=== PATIENT | female | born 1945 | race African-American/Black ===

== ENCOUNTER 2016-07-26 12:58 | Emergency (ER) | payer OTHER ==
--- NOTE | ~2016-07-26 | CR72 ---
[facility] A Service of [facility] & [facility] RADIOLOGY TEXT RESULTS PATIENT: GABBIE KAUFFMAN LOCATION: [facility] : 45 UNIT #: [id number] AGE: [address]: Lynda Cruz MD SEX: F ORDER DR: [id number] [facility] [address] [place], [place] [address] [id number] E MR#: [id number] Acc #: [id number] NAME: GABBIE KAUFFMAN : 1945 SEX: F STUDY DATE/TIME: 07/26/2016 12:52 UNIT: [facility] ROOM: STUDY DESCRIPTION: CR Chest Single View Portable Attending Physician: Lynda Cruz M.D. Ordering Physician: Lynda Cruz M.D. Primary Care Physician: Hany Jamison Sr., M.D. MEDICAL IMAGING REPORT This report is preliminary unless electronic signature is present EXAM Portable chest 07/26/16 HISTORY 71-year-old female with shortness of air for 1 day. COMPARISON: Chest 06/10/2014 FINDINGS Frontal chest demonstrates clear lungs. No pleural effusion or pneumothorax. Heart size and mediastinum are normal. Pulmonary vasculature normal. IMPRESSION No acute cardiopulmonary findings. Dictated by... Shivam Altman M.D. THIS IS AN ELECTRONICALLY VERIFIED REPORT Shivam Altman M.D. at 07/28/2016 8:32 AM JAMARI/francisco TD: 07/27/2016 10:03 JOB #: [id number] MEDICAL IMAGING REPORT Page 1 of 1 COPY
--- NOTE | ~2016-07-26 | EKG ---
PATIENT: GABBIE KAUFFMAN UNIT #: [id number] Ventricular Rate: 97 BPM Atrial Rate: 97 BPM P-R Interval: 162 ms QRS Duration: 66 ms Q-T Interval: 334 ms QTC Calculation(Bezet): 424 ms P Mchenry: 81 degrees Calculated R Mchenry: 71 degrees Calculated T Mchenry: 58 degrees Diagnosis Line: Normal sinus rhythm Diagnosis Line: Normal ECG Diagnosis Line: When compared with ECG of 16-MAY-2015 16:33, Diagnosis Line: No significant change was found Diagnosis Line: Confirmed by KEENA CAMP MD ([id number]) on Diagnosis Line: 07/27/2016 8:02:01 AM INTERPRETING MD: ZOË MENDOZA
[~2016-07-26 12:58] MED LIST: ALBUTEROL17 G1 IH; ATENOLOL-CHLORT1 TA2 PO; CLOPIDOGREL75 MG PO; COREG6.25 MG PO; COSOPT EYE DROPS5 ML OS; DICLOFENAC PO; LEVEMIR SUBQ; LISINOPRIL10 MG PO; LO-DOSE ASPIRIN81 M1 PO; LUMIGAN2.5 ML OU; METFORMIN PO; NITROSTAT0.4 MG SL; NORVASC PO; PRAVACHOL PO; PROAIR HFA8.5 GM IH; ZITHROMAX1 G/PKT PO
[2016-07-26 13:40] LABS: BASOPHIL# 0.1 X10e3 (0-0.3); BASOPHIL% 0.7 % (0-2.5); EOSINOPHIL# 0.4 X10e3 (0-0.7); EOSINOPHIL% 3.5 % (0.0-7.0); HEMATOCRIT 42.4 % (35.0-45.0); HEMOGLOBIN 13.9 gm/dL (12.0-16.0); LYMPHOCYTE% 10.2 % (17.0-45.0); MEAN CELL VOLUME 97.2 FL (83-96); MEAN CORPUSCULAR HEMOGLOBIN 31.8 PG (28-34); MEAN CORPUSCULAR HGB CONC 32.7 g/dL (30-36); MEAN PLATELET VOLUME 8.3 FL (6.5-11.5); MONOCYTE# 0.8 X10e3 (0-1.0); MONOCYTE% 8.1 % (3.0-12.0); NEUTROPHIL# 7.9 X10e3 (1.5-7.1); NEUTROPHIL% 77.5 % (40-75); PLATELET COUNT 256 X10e3 (140-420); RED BLOOD COUNT 4.36 X10e (3.90-5.30); RED CELL DISTRIBUTION WIDTH 14.7 % (11.0-15.5); WHITE BLOOD COUNT 10.2 X10e3 (4.0-10.5)
[2016-07-26 13:43] LABS: POC - CKMB 2.5 ng/mL (0.0-7.9); POC - TROPONIN <0.05 ng/mL (<=0.05)
[2016-07-26 13:47] LABS: DIFF IND NO
[2016-07-26 13:54] LABS: PROTHROMBIN TIME (PATIENT) 10.2 SECONDS (9.6-11.5)
[2016-07-26 14:06] LABS: INFLUENZA A NEG (NEG); INFLUENZA B NEG (NEG)
[2016-07-26 14:15] LABS: ALBUMIN SERUM 4.2 g/dL (3.5-5.0); ALKALINE PHOSPHATASE 72 U/L (32-92); ALT (SGPT) 18 U/L (10-40); AST (SGOT) 19 U/L (10-42); BILIRUBIN,TOTAL 0.5 mg/dL (0.2-2.0); BLOOD UREA NITROGEN 13 mg/dL (9-23); BUN/CREATININE RATIO 21.66; CALCIUM SERUM 9.2 mg/dL (8.4-10.2); CARBON DIOXIDE 25 mmol/L (22-31); CHLORIDE 104 mmol/L (100-111); CREATININE SERUM 0.6 mg/dL (0.6-1.4); GLOM FILT RATE Estimated ABOVE60 mL/min (>60); GLUCOSE FASTING 164 mg/dL (70-110); POTASSIUM 3.9 mmol/L (3.5-5.1); PROTEIN TOTAL SERUM 8.1 g/dL (6.0-8.3); SODIUM 141 mmol/L (135-145)
[2016-07-26 14:16] LABS: BILIRUBIN, DIRECT <0.1 mg/dL (0.0-0.2); BILIRUBIN,INDIRECT 0.4 mg/dL (0.0-0.9)
[2016-07-26] MEDS ORDERED: NORVASC10 MG PO (20:22)
[2016-07-26] MEDS ORDERED: CARVEDILOL25 MG PO (20:24)
[2016-07-26] MEDS ORDERED: CLOPIDOGREL75 MG PO (20:25)
[2016-07-26] MEDS ORDERED: VOLTAREN75 MG PO (20:27)
[2016-07-26] MEDS ORDERED: LATANOPROST2.5 ML OU (20:30)
[2016-07-26] MEDS ORDERED: NITROSTAT0.4 MG SL (20:31)
[2016-07-26] MEDS ORDERED: METFORMIN HCL500 M1 PO (20:31)
[2016-07-26] MEDS ORDERED: PRAVASTATIN SOD40 MG PO (20:32)
[2016-07-26] MEDS ORDERED: ASPIRIN EC81 M1 PO (20:34)
[2016-07-26] MEDS ORDERED: ALBUTEROL17 GM INH (20:34)
[2016-07-26] MEDS ORDERED: REFRESH OP SOL0.4 ML OD (20:35)
[2016-07-26] MEDS ORDERED: TIMOPTIC OU (20:38)
== END 2016-07-26 15:12 | disposition home or self-care (01) ==
LOC: CED 12:58
PROVIDERS: Emergency Medicine
DX: J20.9 Acute bronchitis, unspecified (principal); E11.9 Type 2 diabetes mellitus without complications; I10 Essential (primary) hypertension; F17.200 Nicotine dependence, unspecified, uncomplicated; Z79.899 Other long term (current) drug therapy; Z79.82 Long term (current) use of aspirin; Z79.01 Long term (current) use of anticoagulants; Z79.4 Long term (current) use of insulin
CPT/HCPCS: 36415; 71010; 80048; 80076; 82553; 83880; 84484; 85025; 85610; 87804; 93005; 99284

== ENCOUNTER 2016-07-26 20:18 | Inpatient (IN) | payer OTHER ==
--- NOTE | ~2016-07-26 | HP ---
Unit #: [id number] #: [id number] Patient: GABBIE KAUFFMAN [id number] [facility]. [place], [place] [address] [id number] I MR#: [id number] NAME: GABBIE KAUFFMAN ROOM: 325 Age: 71 Sex: F Admission Date: 07/26/2016 : 1945 Attending Physician: Elizabeth Huntley M.D. Primary Care Physician: Hany Jamison Sr., M.D. HISTORY AND PHYSICAL CHIEF COMPLAINT Short of air. HISTORY OF PRESENT ILLNESS The patient is a 71-year-old female with a past medical history of COPD, hypertension, hyperlipidemia, coronary artery disease and diabetes who presented to the emergency department for evaluation of the above. The patient states that she was in her usual state of health until the day prior to admission when she started not feeling well. She states that she has had a productive cough, chills, body aches and increasing shortness of breath. She denies any chest pain. She has had decreased appetite, as well as loose stools. She denies any vomiting. She has had some generalized abdominal cramping. She denies any urinary symptoms. Of note, the patient was seen in the emergency department earlier today and discharged home with prednisone and antibiotics. She did not yet fill the prescriptions but returned to the emergency department due to feeling worse. Solu-Medrol, 125 mg, has been ordered. Oxygen saturation is 95% on room air. Chest x-ray shows nothing acute. She is being admitted to [facility] for evaluation and further treatment. PAST MEDICAL HISTORY 1. Admission to [facility] November 01 through November 03, 2013 for unstable angina. She underwent cardiac catheterization during that admission that showed 95% stenosis first marginal branch of the circumflex, 70% stenosis in proximal left anterior descending, 75% stenosis in mid left anterior descending, 70% to 75% stenosis in mid right coronary artery. The plan, per the discharge summary, was medical management. 2. COPD with continued tobacco abuse. Not on home oxygen and not followed by a real estate legal secretary. 3. Coronary artery disease with cardiac catheterization. Results noted above. 4. Diabetes. 5. Hypertension. 6. Hyperlipidemia. 7. Echocardiogram November 01, 2013 showed an ejection fraction greater than 55%. PAST SURGICAL HISTORY Cardiac catheterization, November 02, 2013, with results noted above. SOCIAL HISTORY Unit #: [id number] #: [id number] Patient: GABBIE KAUFFMAN The patient has 2 grandchildren who live with her. She smokes a few cigarettes daily. She denies alcohol use. FAMILY HISTORY Notable for her dad having tuberculosis. ALLERGIES No known allergies. HOME MEDICATIONS 1. Amlodipine 10 mg daily. 2. Carvedilol 25 mg 1 1/2 tablets by mouth b.i.d. 3. Plavix 75 mg daily. 4. Diclofenac 75 mg b.i.d. 5. Latanoprost eyedrops daily. 6. Metformin 500 mg b.i.d. 7. Nitroglycerin 0.4 mg sublingual p.r.n. 8. Pravastatin 40 mg daily. 9. Ventolin 2 puffs p.r.n. q.4 hours. 10. Aspirin 81 mg daily. 11. Timolol eyedrops b.i.d. REVIEW OF SYSTEMS A complete review of systems is negative except as indicated in the HPI. The patient states that her blood sugars are typically in the low 100s. PHYSICAL EXAMINATION VITAL SIGNS: Temperature is 100.2, pulse 122, respirations 19, blood pressure 138/72, oxygen saturation 95% on room air. GENERAL: The patient is a very pleasant female who is awake and alert, in no acute distress. HEENT: The head is atraumatic. Mucous membranes are moist. NECK: Supple. Trachea is midline. CARDIOVASCULAR: Regular rate and rhythm. RESPIRATORY: Lungs demonstrate inspiratory and expiratory wheezes. Breathing is mildly labored with conversation. ABDOMEN: Soft, nontender with bowel sounds present in all 4 quadrants. EXTREMITIES: Extremities are nontender with no pedal edema. NEUROLOGIC: The patient is awake and alert. She follows commands. PSYCHIATRIC: Mood and affect are normal. The patient is cooperative. SKIN: Skin of examined areas is warm and dry. DIAGNOSTIC TESTS IMAGING: Chest x-ray shows nothing acute. Complete blood count is essentially normal. INR is 1. Rapid flu screen is negative. Comprehensive metabolic panel is notable for glucose of 164. BNP is 33. LABORATORY: Troponin is less than 0.05. ASSESSMENT 1. The patient is a 71-year-old female with COPD exacerbation. This is the patient's second visit to the emergency department today. 2. Tobacco abuse. 3. Hypertension. 4. Hyperlipidemia. 5. Coronary artery disease. 6. Diabetes. Unit #: [id number] #: [id number] Patient: GABBIE KAUFFMAN PLAN 1. Admit to intermediate level for observation. 2. Healthy heart, consistent carb diet. 3. Supplemental oxygen. 4. DuoNeb q.4 hours while awake and q.2 hours p.r.n. 5. Solu-Medrol 80 mg IV q.12 hours. 6. Mucinex 600 mg p.o. b.i.d. 7. Doxycycline 100 mg p.o. b.i.d. for possible acute bronchitis. 8. Check D-dimer. 9. Followup results of lactic acid. 10. EKG and cardiac enzymes. 11. Hemoglobin A1C. 12. Low-dose sliding scale insulin with Accu-Cheks. 13. Tylenol p.r.n. 14. Protonix for GI prophylaxis since the patient will be on Solu-Medrol. 15. Repeat labs in the morning. 16. Additional workup and consultants based on above. Dictated by Liliana Carias/jignesh TD: 07/27/2016 08:44 JOB #: [id number] HISTORY AND PHYSICAL X Rosemarie Palacios MD HISTORY AND PHYSICAL
--- NOTE | ~2016-07-26 | EKG ---
PATIENT: GABBIE KAUFFMAN UNIT #: [id number] Ventricular Rate: 113 BPM Atrial Rate: 113 BPM P-R Interval: 156 ms QRS Duration: 68 ms Q-T Interval: 324 ms QTC Calculation(Bezet): 444 ms P Carbon: 81 degrees Calculated R Carbon: 62 degrees Calculated T Carbon: 81 degrees Diagnosis Line: Sinus tachycardia with Premature atrial complexes Diagnosis Line: Right atrial enlargement Diagnosis Line: Borderline ECG Diagnosis Line: No previous ECGs available Diagnosis Line: Confirmed by KEENA CAMP MD ([id number]) on Diagnosis Line: 07/27/2016 8:03:00 AM INTERPRETING MD: ZOË MENDOZA
--- NOTE | ~2016-07-26 | EKG ---
PATIENT: GABBIE KAUFFMAN UNIT #: [id number] Ventricular Rate: 91 BPM Atrial Rate: 91 BPM P-R Interval: 150 ms QRS Duration: 72 ms Q-T Interval: 338 ms QTC Calculation(Bezet): 415 ms P Carmel: 83 degrees Calculated R Carmel: 53 degrees Calculated T Carmel: 56 degrees Diagnosis Line: Normal sinus rhythm Diagnosis Line: Normal ECG Diagnosis Line: When compared with ECG of 26-JUL-2016 20:03, Diagnosis Line: Premature atrial complexes are no longer Present Diagnosis Line: Confirmed by JAG HOWELL MD ([id number]) on 07/31/2016 Diagnosis Line: 7:34:28 AM INTERPRETING MD: LYNDA MENDOZA
--- NOTE | ~2016-07-26 | CO ---
Unit #: [id number] #: [id number] Patient: GABBIE KAUFFMAN [id number] [facility]. [place], [place] [address] [id number] I MR#: [id number] NAME: GABBIE KAUFFMAN ROOM: 335 Age: 71 Sex: F Admission Date: 07/26/2016 : 1945 Attending Physician: Elizabeth Huntley M.D. Primary Care Physician: Hany Jamison Sr., M.D. CONSULTATION REPORT REASON FOR CONSULTATION Arrhythmia. HISTORY OF PRESENT ILLNESS This is a 71-year-old female, who presented to the emergency room with a complaint of dyspnea. She developed dyspnea at rest, it is worse on exertion on Wednesday. Her dyspnea eventually was to a point, where she could not walk across the street without shortness of breath. She went to the emergency room on Wednesday and was given prescriptions, however, the pharmacy was closed. Later that day, the patient's dyspnea worsened and EMS was dispatched. She reports productive cough with white sputum, 2-pillow orthopnea, and recent leg edema. Positive for fever. She was admitted with COPD exacerbation. Today, she had a short burst of paroxysmal supraventricular tachycardia. The patient reported palpitations. She had no symptoms of angina, but has dizziness upon standing for the past 2 days. BNP was 33. Chest x-ray shows no acute findings. She had elevation of D-dimer, but CT of the chest shows no pulmonary embolism. There was an incidental finding of a right lower lobe nodule measuring 2.2 cm. Her troponin was negative with no acute ischemic changes on EKG. PAST MEDICAL HISTORY 1. 2D echocardiogram on 11/01/2013 shows an ejection fraction of greater than 55% with normal valves. 2. Cardiac catheterization on 11/02/2013 shows LAD with 70% stenosis proximally. Mid LAD 75%. First marginal branch 95% with mid right coronary artery 70% to 75%. 3. Hypertension. 4. Hyperlipidemia. 5. Diabetes mellitus, type 2. 6. COPD. 7. Former smoker. PAST SURGICAL HISTORY No previous surgeries. SOCIAL HISTORY The patient lives with two grandchildren. She quit smoking 2 years ago, but both for her grandchildren smoke heavily. She denies illicit drug or alcohol use. FAMILY HISTORY Negative for coronary artery disease. Unit #: [id number] #: [id number] Patient: LIVERS,GABBIE ALLERGIES No known drug allergies. HOME MEDICATIONS Norvasc 10 mg daily, carvedilol 37.5 mg b.i.d., Plavix 75 mg daily, diclofenac 75 mg b.i.d., latanoprost one drop OU q.h.s., metformin 500 mg b.i.d., Nitrostat 0.4 mg sublingual p.r.n., pravastatin 40 mg q.h.s., albuterol one puff q.4 hours p.r.n., aspirin 81 mg daily, Refresh eye drops p.r.n., Timoptic 1 drop OU b.i.d. REVIEW OF SYSTEMS CONSTITUTIONAL: Positive for weakness and fatigue. Reports no weight gain or weight loss. Has fever, but no chills. HEENT: No headache, hearing or vision changes, difficulty with swallowing. Positive for dizziness. CARDIOVASCULAR: Has no symptoms of angina. Positive for palpitations. Reports 2-pillow orthopnea. Reports near syncope. RESPIRATORY: Positive for dyspnea at rest worse on exertion. Has productive cough of white sputum. GASTROINTESTINAL: No abdominal pain, nausea, or vomiting. EXTREMITIES: Had recent lower extremity edema. PHYSICAL EXAMINATION VITAL SIGNS: Blood pressure 130/75, heart rate 97, temperature 97.9. GENERAL: This is a very pleasant 71-year-old female, who is in no acute distress. NEUROLOGIC: She is awake, alert, and oriented. There are no focal weaknesses. NECK: Trachea is midline. No thyromegaly or lymphadenopathy. No jugular venous distention. HEART: S1 and S2. Heart sounds are normal. No murmurs. No rubs or clicks. Regular rate and rhythm. LUNGS: Diminished breath sounds with faint expiratory wheezes. No rhonchi or rales. ABDOMEN: Soft and nontender with bowel sounds are present. EXTREMITIES: Without leg edema. SKIN: Warm and dry. DIAGNOSTIC STUDIES LABORATORY RESULTS: Hemoglobin 13.0, hematocrit 40.7, platelet count 251, white count 13.9. Sodium 140, potassium 3.9, BUN 24, creatinine 0.7, glucose 179. D-dimer 507. BNP 33. Troponin less than 0.05. IMAGING STUDIES: Chest x-ray shows no active disease. CTA of the chest negative for pulmonary embolism. There was a focal airspace opaque density in the posterior right lower lobe measuring up to 2.2 cm. CARDIOVASCULAR STUDIES: EKG shows normal sinus rhythm with no acute ischemic changes. Rhythm strip shows paroxysmal atrial fibrillation with underlying normal sinus rhythm. IMPRESSION 1. Acute hypoxic respiratory failure. 2. Acute exacerbation of chronic obstructive pulmonary disease. Unit #: [id number] #: [id number] Patient: GABBIE KAUFFMAN 3. Paroxysmal supraventricular tachycardia secondary to chronic obstructive pulmonary disease/sick sinus syndrome. 4. Two-vessel coronary artery disease per cardiac catheterization in 2013. 5. Preserved left ventricular systolic function with an ejection fraction of greater than 55%. 6. Hypertension. 7. Hyperlipidemia. 8. Diabetes mellitus, type 2. PLAN 1. Cardiology was consulted for premature supraventricular tachycardia. The patient is on adequate beta blockade and nitrates for coronary artery disease. We will check PFTs in a.m. If not too severely depressed, spirometry would consider PCI of the LAD and circumflex. 2. We will follow the patient with you. Thank you for allowing us to assist in this patient's care. Dictated by... Gucci Guerra A.P.R.N. for Liliana Patricia/orlin TD: 07/28/2016 23:32 JOB #: [id number] CONSULTATION REPORT Page 1 of 1 X Gucci Guerra APRN X CONSULTATION REPORT
--- NOTE | ~2016-07-26 | DS ---
Unit #: [id number] #: [id number] Patient: GABBIE KAUFFMAN [id number] [place], [place] [address] [id number] I MR#: [id number] NAME: GABBIE KAUFFMAN ROOM: [facility] Age: 71 Sex: F Admission Date: 07/26/2016 : 1945 Discharge Date: 07/31/2016 Attending Physician: Elizabeth Huntley M.D. Primary Care Physician: Hany Jamison Sr., M.D. DISCHARGE SUMMARY REASON FOR ADMISSION Dyspnea. HISTORY OF PRESENT ILLNESS/HOSPITAL COURSE The patient is a very pleasant 71-year-old female with underlying history of chronic obstructive pulmonary disease with ongoing tobacco use, hypertension, hyperlipidemia, coronary artery disease, who presented to the emergency department for evaluation of above. Please see H and P for details of initial part of hospital stay. Secondary to acute onset of shortness of breath as well as discomfort, the patient underwent a CT angiogram of the chest, PE protocol, on 07/26/2016, which did reveal focal nodular airspace opacity in the right lower lobe posteriorly measuring out approximately 2.2 cm. Focal inflammatory infiltrate was favored, but followup CT chest in 3 months was recommended. We placed consultation with Dr. Marquez of Pulmonary Services in regard to the same. She was placed on appropriate community-acquired pneumonia protocol while she was here and was asked as an outpatient that she should follow up for repeat CT in 3 months. Please note, the patient's hemoglobin A1c was 6.8% this hospital admission. The patient did have some mild chest discomfort, increased dyspnea, as well as heart palpitations, and therefore we placed consultation with Dr. Cruz of Cardiology Services as he had seen the patient in the past. She does have a prior history of 3-vessel coronary artery disease. He saw and evaluated the patient, eventually placed the patient on both Xarelto as well as amiodarone taper, please see below. At this point in time, she has been cleared by Cardiology as well as Pulmonary Services for discharge. FINAL DISCHARGE DIAGNOSES 1. Acute hypoxic respiratory failure. 2. Acute exacerbation of chronic obstructive pulmonary disease. 3. Right lower lobe pneumonia versus nodule. 4. Right lower lobe abnormality/nodule. Followup CT chest in 3 months recommended. 5. Paroxysmal atrial fibrillation. 6. Paroxysmal supraventricular tachycardia. Unit #: [id number] #: [id number] Patient: GABBIE KAUFFMAN 7. Hypertension. 8. Hyperlipidemia. 9. Type 2 diabetes. Hemoglobin A1c is 6.8%. 10. Three-vessel coronary artery disease. FINAL DISCHARGE MEDICATIONS Albuterol nebulizer solution q.2 to q.4 p.r.n.; prednisone 40 mg p.o. daily x5 days; Tylenol 650 mg p.o. q.6 p.r.n.; metformin 500 mg p.o. b.i.d.; Coreg 37.5 mg p.o. b.i.d.; Norvasc 10 mg p.o. daily; Timoptic eyedrop 1 drop b.i.d.; Xalatan eyedrop as directed; Pravachol 40 mg p.o. q.h.s.; Refresh eyedrops as directed; aspirin 81 mg p.o. daily; Plavix 75 mg p.o. daily; sublingual nitroglycerin as directed; Levaquin 750 mg p.o. daily x5 days; Daliresp 500 mcg p.o. daily; Xarelto 20 mg 1 tab p.o. daily with evening meal. DISCHARGE CONDITION Stable. DISCHARGE DISPOSITION Home. FOLLOWUP Follow up Dr. Jamison, PCP, in approximately 7 to [address] chest in 3 months. Dictated by... Liliana Tinsley/orlin TD: 08/01/2016 05:45 JOB #: [id number] DISCHARGE SUMMARY Page 1 of 1 X Elizabeth Huntley MD X DISCHARGE SUMMARY
--- NOTE | ~2016-07-26 | CT16 ---
[facility] A Service of [facility] RADIOLOGY TEXT RESULTS PATIENT: GABBIE KAUFFMAN LOCATION: [facility] [id number] : [birth year] UNIT #: [id number] AGE: [address]: Rosemarie Palacios MD SEX: F ORDER DR: [id number] [facility] [address] [facility]. [place], [place] [address] [id number] I MR#: [id number] Acc #: [id number] NAME: GABBIE KAUFFMAN : 1945 SEX: F STUDY DATE/TIME: 07/26/2016 21:40 UNIT: [facility] ROOM: [id number] STUDY DESCRIPTION: CT Angio Chest for PE Attending Physician: Rosemarie Palacios M.D. Ordering Physician: Isabella Bucio M.D. Primary Care Physician: Hany Jamison Sr., M.D. MEDICAL IMAGING REPORT This report is preliminary unless electronic signature is present EXAM CT chest with contrast, pulmonary arteriography protocol, 07/26/2016 HISTORY 71-year-old female with 1-day history of shortness of air, dyspnea. TECHNIQUE CT examination of the chest was performed with IV contrast using pulmonary arteriography protocol. 3-D CTA images of the pulmonary arteries were reformatted in multiple planes. FINDINGS No pulmonary embolism is demonstrated. Thoracic aorta is normal in caliber with no aneurysm or dissection. Heart size is normal, and there is no pericardial effusion. Focal nodular airspace opacity is present in the posterior right lower lobe measuring up to 2.2 cm. Inflammatory infiltrate is suspected, but followup chest CT in 3-4 months is recommended to document resolution and to exclude malignancy. Remaining portions of both lungs are clear. There is no pleural effusion. No suspicious mass or adenopathy is seen within the mediastinum or pulmonary saniya. IMPRESSION 1. No evidence of pulmonary embolism. 2. Focal nodular airspace opacity in the right lower lobe posteriorly measuring up to 2.2 cm. Focal inflammatory infiltrate is favored, but followup chest CT in 3-4 months is recommended to document resolution and to exclude malignancy. Lungs are otherwise clear. No pleural effusion. STAT * RESULT [facility]. [facility] A Service of [facility] RADIOLOGY TEXT RESULTS PATIENT: GABBIE KAUFFMAN LOCATION: [facility] [address]15 : [birth year] UNIT #: [id number] AGE: [address]: Rosemarie Palacios MD SEX: F ORDER DR: Dictated by... Javier Purdy M.D. THIS IS AN ELECTRONICALLY VERIFIED REPORT Javier Purdy M.D. at 07/27/2016 12:03 AM GABRIELLA/juliocesar TD: 07/26/2016 22:30 JOB #: [id number] MEDICAL IMAGING REPORT COPY
--- NOTE | ~2016-07-26 | CO ---
Unit #: [id number] #: [id number] Patient: GABBIE KAUFFMAN [id number] [place], [place] [address] [id number] I MR#: [id number] NAME: GABBIE KAUFFMAN ROOM: 335 Age: 71 Sex: F Admission Date: 07/26/2016 : 1945 Attending Physician: Elizabeth Huntley M.D. Primary Care Physician: Hany Jamison Sr., M.D. CONSULTATION REPORT HISTORY OF PRESENT ILLNESS Ms. Kauffman is a 71-year-old female with a history of apparently COPD, hypertension, hyperlipidemia, coronary artery disease, and diabetes who presented to the emergency room with increased shortness of breath. She was came ill about a week ago and was seen in Dr. Jamison's office. She was given an inhaler with Symbicort to use with her p.r.n. Ventolin rescue inhaler. She did not improve with that and presented to the emergency room. 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 She dropped the prescription off at [facility], but they had already closed and she did not get those medications. Her breathing worsened through the night and she presented back to the emergency room and was admitted. In the emergency room, her room air O2 saturation was recorded at 95%, her blood pressure is 138/72, pulse was 122, temperature was 100.2. She was given Solu-Medrol. She was admitted, started on inhaled bronchodilators, IV Solu-Medrol, Mucinex, doxycycline. A CT scan of the chest was done, which showed a very small 2.2 cm focal area of abnormality in the right lower lobe and possibly inflammatory. She has been changed to Levaquin 750 mg IV daily and continued on steroids and bronchodilators. We were asked to see. PAST MEDICAL HISTORY She has a past medical history of coronary artery disease and seen Dr. Cruz in the past. History of COPD, although she only smoked for 5 years, but is around a lot of secondhand smoke. She does not wear home oxygen. She has history of diabetes, hypertension, and hyperlipidemia. PAST SURGICAL HISTORY Cardiac cath, Dr. Cruz. ALLERGIES None known. HOME MEDICATIONS Norvasc, Coreg, Plavix, diclofenac, latanoprost, metformin, nitroglycerin, pravastatin, Ventolin, aspirin, timolol, Symbicort. REVIEW OF SYSTEMS Ten-point review of systems negative except for mentioned above. PHYSICAL EXAMINATION GENERAL: female, in no distress. VITAL SIGNS: Blood pressure is 133/71, pulse 93, respiratory rate 16, and afebrile. Unit #: [id number] #: [id number] Patient: GABBIE KAUFFMAN HEENT: Normocephalic and atraumatic. Pupils are equal, round, and reactive. Sclerae nonicteric. Nasal passages patent. Posterior pharynx crowded. Mallampati IV. NECK: Supple. Trachea midline. No cervical or supraclavicular lymphadenopathy. LUNGS: Reveal some expiratory wheezes bilaterally. Prolonged expiratory phase. CARDIAC: Heart sounds distant. Regular rate and rhythm. Could not appreciate murmur, rub, or gallop. ABDOMEN: Nontender. Bowel sounds present. No hepatosplenomegaly. EXTREMITIES: Without clubbing, cyanosis, or edema. NEUROLOGIC: Awake, alert, and oriented x3. Cranial nerves intact. Muscle strength symmetric bilaterally. Affect calm. SKIN: Warm and dry. No swollen joints. DIAGNOSTIC STUDIES IMAGING STUDIES: Chest x-ray; no infiltrate, mass, or congestion. CT scan as noted above. CT scan showed no PE. LABORATORY RESULTS: Chemistries reviewed. Glucose is 307, sodium 134. Cardiac enzymes were negative. Hemoglobin A1c was 6.8. Thyroid function test okay. Coags normal. D-dimer mildly elevated. Hematocrit is 41, white count 14.8. Influenza A and B are negative. Urinalysis not done. IMPRESSION 1. Chronic obstructive pulmonary disease exacerbation. 2. Possible right lower lobe pneumonia. 3. Coronary artery disease. 4. Hypertension. 5. Diabetes. 6. Hyperlipidemia. PLAN Agree with inhaled bronchodilators, IV Solu-Medrol and covering with antibiotics. Will need maintenance medications in the form of Symbicort at home and rescue inhaler. Would like to obtain outpatient pulmonary function tests after she has improved to see the severity of underlying chronic lung disease. I would think she would not have much baseline COPD given her previous lack of smoking. If she does have significant disease, would consider checking alpha-1 antitrypsin level. She will need follow up CT scan for right lower lobe density in 3 months to ensure clearing. We may also want to evaluate her for obstructive sleep apnea. She lives alone and does not know if she snores, but her airway is quite small. We will follow with you. Dictated by... Kash Marquez M.D. SABINE/orlin TD: 07/30/2016 23:52 JOB #: [id number] Unit #: [id number] #: [id number] Patient: GABBIE KAUFFMAN CONSULTATION REPORT Page 1 of 1 X Kash Marquez MD X CONSULTATION REPORT
[2016-07-26] MEDS ORDERED: NORVASC10 MG PO (20:22)
[2016-07-26] MEDS ORDERED: CARVEDILOL25 MG PO (20:24)
[2016-07-26] MEDS ORDERED: CLOPIDOGREL75 MG PO (20:25)
[2016-07-26] MEDS ORDERED: VOLTAREN75 MG PO (20:27)
[2016-07-26] MEDS ORDERED: LATANOPROST2.5 ML OU (20:30)
[2016-07-26] MEDS ORDERED: NITROSTAT0.4 MG SL (20:31)
[2016-07-26] MEDS ORDERED: METFORMIN HCL500 M1 PO (20:31)
[2016-07-26] MEDS ORDERED: PRAVASTATIN SOD40 MG PO (20:32)
[2016-07-26] MEDS ORDERED: ALBUTEROL17 GM INH (20:34)
[2016-07-26] MEDS ORDERED: ASPIRIN EC81 M1 PO (20:34)
[2016-07-26] MEDS ORDERED: REFRESH OP SOL0.4 ML OD (20:35)
[2016-07-26] MEDS ORDERED: TIMOPTIC OU (20:38)
[2016-07-26 21:41] LABS: %MB 1.4 % (0.0-4.0); MB 1.6 ng/ml
[2016-07-27 03:48] LABS: %MB 1.5 % (0.0-4.0); MB 1.5 ng/ml
[2016-07-27 08:25] LABS: BASOPHIL% 0.5 % (0-2.5); LYMPHOCYTE# 1.1 X10e3 (1.0-3.5); LYMPHOCYTE% 13.3 % (17.0-45.0); MEAN CELL VOLUME 97.9 FL (83-96); MEAN CORPUSCULAR HEMOGLOBIN 31.8 PG (28-34); MEAN CORPUSCULAR HGB CONC 32.5 g/dL (30-36); MEAN PLATELET VOLUME 8.6 FL (6.5-11.5); MONOCYTE# 0.2 X10e3 (0-1.0); MONOCYTE% 2.1 % (3.0-12.0); NEUTROPHIL# 7.2 X10e3 (1.5-7.1); NEUTROPHIL% 84.1 % (40-75); PLATELET COUNT 264 X10e3 (140-420); RED BLOOD COUNT 4.39 X10e (3.90-5.30); RED CELL DISTRIBUTION WIDTH 14.6 % (11.0-15.5); WHITE BLOOD COUNT 8.5 X10e3 (4.0-10.5)
[2016-07-27 08:29] LABS: DIFF IND NO
[2016-07-27 09:02] LABS: BLOOD UREA NITROGEN 16 mg/dL (9-23); CARBON DIOXIDE 23 mmol/L (22-31); CHLORIDE 106 mmol/L (100-111); CK TOTAL 116 IU/L (26-140); CREATININE SERUM 0.8 mg/dL (0.6-1.4); GLOM FILT RATE Estimated ABOVE60 mL/min (>60); GLUCOSE FASTING 305 mg/dL (70-110); SODIUM 137 mmol/L (135-145)
[2016-07-27 09:47] LABS: %MB 1.1 % (0.0-4.0); MB 1.3 ng/ml
[2016-07-28 05:20] LABS: HEMATOCRIT 40.7 % (35.0-45.0); MEAN CELL VOLUME 97.5 FL (83-96); MEAN CORPUSCULAR HEMOGLOBIN 31.3 PG (28-34); MEAN CORPUSCULAR HGB CONC 32.1 g/dL (30-36); MEAN PLATELET VOLUME 8.5 FL (6.5-11.5); RED BLOOD COUNT 4.17 X10e (3.90-5.30); RED CELL DISTRIBUTION WIDTH 14.5 % (11.0-15.5)
[2016-07-28 05:22] LABS: WHITE BLOOD COUNT 13.9 X10e3 (4.0-10.5)
[2016-07-28 06:00] LABS: ALBUMIN SERUM 3.6 g/dL (3.5-5.0); ALKALINE PHOSPHATASE 60 U/L (32-92); ALT (SGPT) 19 U/L (10-40); AST (SGOT) 17 U/L (10-42); BILIRUBIN,TOTAL 0.5 mg/dL (0.2-2.0); BLOOD UREA NITROGEN 24 mg/dL (9-23); BUN/CREATININE RATIO 34.28; CARBON DIOXIDE 27 mmol/L (22-31); CHLORIDE 106 mmol/L (100-111); CREATININE SERUM 0.7 mg/dL (0.6-1.4); GLOM FILT RATE Estimated ABOVE60 mL/min (>60); GLUCOSE FASTING 179 mg/dL (70-110); POTASSIUM 3.9 mmol/L (3.5-5.1); PROTEIN TOTAL SERUM 7.1 g/dL (6.0-8.3); SODIUM 140 mmol/L (135-145)
[2016-07-28 16:29] LABS: THYROID STIMULATING HORMONE 0.14 uIU/ml (0.34-5.60)
[2016-07-28 16:36] LABS: FREE THYROXIN (T4) 1.2 ng/dL (0.58-1.64)
[2016-07-29 10:17] LABS: HEMOGLOBIN 13.3 gm/dL (12.0-16.0); MEAN CELL VOLUME 98.1 FL (83-96); MEAN CORPUSCULAR HEMOGLOBIN 31.9 PG (28-34); MEAN CORPUSCULAR HGB CONC 32.5 g/dL (30-36); MEAN PLATELET VOLUME 8.5 FL (6.5-11.5); RED BLOOD COUNT 4.18 X10e (3.90-5.30); RED CELL DISTRIBUTION WIDTH 14.3 % (11.0-15.5); WHITE BLOOD COUNT 14.8 X10e3 (4.0-10.5)
[2016-07-29 10:52] LABS: BLOOD UREA NITROGEN 19 mg/dL (9-23); BUN/CREATININE RATIO 23.75; CALCIUM SERUM 8.8 mg/dL (8.4-10.2); CARBON DIOXIDE 26 mmol/L (22-31); CHLORIDE 96 mmol/L (100-111); CREATININE SERUM 0.8 mg/dL (0.6-1.4); GLOM FILT RATE Estimated ABOVE60 mL/min (>60); GLUCOSE FASTING 307 mg/dL (70-110); POTASSIUM 4.1 mmol/L (3.5-5.1); SODIUM 134 mmol/L (135-145)
[2016-07-30 08:03] LABS: HEMATOCRIT 41.5 % (35.0-45.0); HEMOGLOBIN 13.3 gm/dL (12.0-16.0); MEAN CELL VOLUME 98.3 FL (83-96); MEAN CORPUSCULAR HEMOGLOBIN 31.6 PG (28-34); MEAN CORPUSCULAR HGB CONC 32.1 g/dL (30-36); RED BLOOD COUNT 4.22 X10e (3.90-5.30); RED CELL DISTRIBUTION WIDTH 14.8 % (11.0-15.5)
[2016-07-30 08:30] LABS: BLOOD UREA NITROGEN 18 mg/dL (9-23); CALCIUM SERUM 8.9 mg/dL (8.4-10.2); CARBON DIOXIDE 31 mmol/L (22-31); CHLORIDE 101 mmol/L (100-111); CREATININE SERUM 0.8 mg/dL (0.6-1.4); GLOM FILT RATE Estimated ABOVE60 mL/min (>60); GLUCOSE FASTING 221 mg/dL (70-110); SODIUM 139 mmol/L (135-145)
[2016-07-31 08:11] LABS: HEMATOCRIT 41.8 % (35.0-45.0); HEMOGLOBIN 13.6 gm/dL (12.0-16.0); MEAN CORPUSCULAR HEMOGLOBIN 31.7 PG (28-34); MEAN CORPUSCULAR HGB CONC 32.7 g/dL (30-36); MEAN PLATELET VOLUME 8.6 FL (6.5-11.5); RED BLOOD COUNT 4.31 X10e (3.90-5.30); RED CELL DISTRIBUTION WIDTH 14.5 % (11.0-15.5); WHITE BLOOD COUNT 11.4 X10e3 (4.0-10.5)
[2016-07-31 08:47] LABS: BUN/CREATININE RATIO 22.85; CALCIUM SERUM 8.5 mg/dL (8.4-10.2); CREATININE SERUM 0.7 mg/dL (0.6-1.4); MAGNESIUM 2.3 mg/dL (1.6-3.0); POTASSIUM 3.8 mmol/L (3.5-5.1)
[2016-07-31] MEDS ORDERED: ACETAMINOPHEN PO (12:05)
[2016-07-31] MEDS ORDERED: DALIRESP500 MCG PO (12:06)
[2016-07-31] MEDS ORDERED: LEVAQUIN750 MG PO (12:06)
[2016-07-31] MEDS ORDERED: PREDNISONE PO (12:07)
[2016-07-31] MEDS ORDERED: XARELTO20 MG PO (12:09)
[2016-07-31] MEDS ORDERED: AMIODARONE PO (12:09)
== END 2016-07-31 14:47 | disposition home or self-care (01) | DRG 190 ==
LOC: CED 20:18 → CEDOF 20:26 → C3A PCU 07-27 08:41
PROVIDERS: Family Medicine
PROC: B32TYZZ Computerized Tomography (CT Scan) of Left Pulmonary Artery using Other Contrast (ICD-10-PCS; principal; 2016-07-26)
PROC: B32SYZZ Computerized Tomography (CT Scan) of Right Pulmonary Artery using Other Contrast (ICD-10-PCS; 2016-07-26)
DX: J44.1 Chronic obstructive pulmonary disease with (acute) exacerbation (principal); J96.01 Acute respiratory failure with hypoxia; J18.9 Pneumonia, unspecified organism; I48.0 Paroxysmal atrial fibrillation; I47.1 Supraventricular tachycardia; E11.9 Type 2 diabetes mellitus without complications; Z79.01 Long term (current) use of anticoagulants; I10 Essential (primary) hypertension; E78.5 Hyperlipidemia, unspecified; Z79.84 Long term (current) use of oral hypoglycemic drugs; I25.10 Atherosclerotic heart disease of native coronary artery without angina pectoris; Z79.02 Long term (current) use of antithrombotics/antiplatelets; Z79.82 Long term (current) use of aspirin; F17.210 Nicotine dependence, cigarettes, uncomplicated; J44.0 Chronic obstructive pulmonary disease with (acute) lower respiratory infection; R91.1 Solitary pulmonary nodule
CPT/HCPCS: 71275; 80048; 80053; 82550; 82553; 82947; 83036; 83605; 83735; 84439; 84443; 84480; 84484; 85025; 85027; 85379; 93005; 94640; 94664; 94760; 99285; J1650; J1815; J1956; J2920; J2930; Q9967

== ENCOUNTER 2016-08-03 10:59 | Emergency (ER) | payer OTHER ==
--- NOTE | ~2016-08-03 | CR72 ---
[facility] Service of [facility] & [facility] RADIOLOGY TEXT RESULTS PATIENT: GABBIE KAUFFMAN LOCATION: [facility] : 45 UNIT #: [id number] AGE: [address]: Sathya Beckett DO SEX: F ORDER DR: [id number] [facility] [place] [facility] [address] [place], [place] [address] [id number] E MR#: [id number] Acc #: [id number] NAME: GABBIE KAUFFMAN : 1945 SEX: F STUDY DATE/TIME: 08/03/2016 10:55 UNIT: [facility] ROOM: STUDY DESCRIPTION: CR Chest Single View Portable Attending Physician: Sathya Beckett D.O. Referring Physician: Hany Jamison Sr., M.D. Ordering Physician: Sathya Beckett D.O. Primary Care Physician: Hany Jamison Sr., M.D. MEDICAL IMAGING REPORT This report is preliminary unless electronic signature is present EXAM Portable chest, 08/03/2016. HISTORY Short of air for the last 3 days. Former smoker. COMPARISON AP portable chest is compared with 07/26/2016. FINDINGS Cardiac and mediastinal contours are normal. The lungs are clear. No pneumothorax is seen. IMPRESSION No active disease. Dictated by... Kalpesh Israel Jr., M.D. THIS IS AN ELECTRONICALLY VERIFIED REPORT Kalpesh Israel Jr., M.D. at 08/03/2016 4:48 PM NABIL/ene TD: 08/03/2016 13:30 JOB #: [id number] MEDICAL IMAGING REPORT Page 1 of 1 COPY
--- NOTE | ~2016-08-03 | EKG ---
PATIENT: GABBIE KAUFFMAN UNIT #: [id number] Ventricular Rate: 82 BPM Atrial Rate: 82 BPM P-R Interval: 152 ms QRS Duration: 68 ms Q-T Interval: 368 ms QTC Calculation(Bezet): 429 ms P [place]: 78 degrees Calculated R [place]: 55 degrees Calculated T [place]li[place]: 49 degrees Diagnosis Line: Normal sinus rhythm Diagnosis Line: Nonspecific ST abnormality Diagnosis Line: Abnormal ECG Diagnosis Line: When compared with ECG of 28-JUL-2016 15:25, Diagnosis Line: No significant change was found Diagnosis Line: Confirmed by JAG HOWELL MD ([id number]) on 08/04/2016 Diagnosis Line: 10:27:16 PM INTERPRETING MD: LYNDA MENDOZA
--- NOTE | ~2016-08-03 | CT4 ---
[facility] A Service of [facility] RADIOLOGY TEXT RESULTS PATIENT: GABBIE KAUFFMAN LOCATION: [facility] : 45 UNIT #: [id number] AGE: [address]: Sathya Beckett DO SEX: F ORDER DR: [id number] [facility] [address] [place], [place] [address] [id number] E MR#: [id number] Acc #: [id number] NAME: GABBIE KAUFFMAN : 1945 SEX: F STUDY DATE/TIME: 08/03/2016 17:02 UNIT: [facility] ROOM: STUDY DESCRIPTION: CT Abd and Pelv Wo Cont Attending Physician: Sathya Beckett D.O. Referring Physician: Hany Jamison Sr., M.D. Ordering Physician: Sathya Beckett D.O. Primary Care Physician: Hany Jamison Sr., M.D. MEDICAL IMAGING REPORT This report is preliminary unless electronic signature is present EXAM CT abdomen and pelvis without contrast, 08/03/2016 HISTORY 71-year-old female right-sided flank pain x3 days. TECHNIQUE This CT exam was performed with one or more of the following radiation dose reduction techniques: automatic exposure control, adjustment of mA and/or kV according to patient size, and iterative reconstruction. FINDINGS Axial images performed through the abdomen and pelvis without contrast. Multiplanar reconstructed images viewed at a workstation. ABDOMEN: Lung bases appear normal. Liver, spleen, gallbladder, pancreas and adrenal glands are unremarkable. The kidneys appear normal. No evidence of renal stone or obstruction. Visualized GI tract unremarkable. Retroperitoneum unremarkable except for mild atherosclerotic changes. PELVIS: Bladder uterus and adnexa appear normal. Osseous structures and soft tissues appear normal. IMPRESSION No acute intraabdominal intrapelvic pathology identified. In particular no evidence of renal stone or obstruction. The appendix is not clearly identified as the as a discrete structure but no focal inflammatory changes identified. Dictated by.Oniel Burger M.D. [facility] A Service of [facility] RADIOLOGY TEXT RESULTS PATIENT: GABBIE KAUFFMAN LOCATION: [facility] : 45 UNIT #: [id number] AGE: [address]: Sathya Beckett DO SEX: F ORDER DR: THIS IS AN ELECTRONICALLY VERIFIED REPORT Vesta Burger M.D. at 08/04/2016 7:29 AM [place] TD: 08/04/2016 05:50 JOB #: [id number] MEDICAL IMAGING REPORT Page 1 of 1 COPY
[~2016-08-03 10:59] MED LIST changes: +ACETAMINOPHEN PO; +ALBUTEROL17 GM INH; +AMIODARONE PO; +ASPIRIN EC81 M1 PO; +CARVEDILOL25 MG PO; +DALIRESP500 MCG PO; +LATANOPROST2.5 ML OU; +LEVAQUIN750 MG PO; +METFORMIN HCL500 M1 PO; +NORVASC10 MG PO; +PRAVASTATIN SOD40 MG PO; +PREDNISONE PO; +REFRESH OP SOL0.4 ML OD; +TIMOPTIC OU; +VOLTAREN75 MG PO; +XARELTO20 MG PO
[2016-08-03 11:56] LABS: POC - CKMB <1.0 ng/mL (0.0-7.9); POC - TROPONIN <0.05 ng/mL (<=0.05)
[2016-08-03 12:05] LABS: BASOPHIL% 0.1 % (0-2.5); EOSINOPHIL% 0.2 % (0.0-7.0); HEMATOCRIT 41.5 % (35.0-45.0); HEMOGLOBIN 13.3 gm/dL (12.0-16.0); LYMPHOCYTE# 3.3 X10e3 (1.0-3.5); LYMPHOCYTE% 27.3 % (17.0-45.0); MEAN CELL VOLUME 97.6 FL (83-96); MEAN CORPUSCULAR HEMOGLOBIN 31.2 PG (28-34); MEAN PLATELET VOLUME 8.2 FL (6.5-11.5); MONOCYTE% 8.5 % (3.0-12.0); NEUTROPHIL# 7.6 X10e3 (1.5-7.1); NEUTROPHIL% 63.9 % (40-75); PLATELET COUNT 276 X10e3 (140-420); RED BLOOD COUNT 4.26 X10e (3.90-5.30); RED CELL DISTRIBUTION WIDTH 14.2 % (11.0-15.5)
[2016-08-03 12:08] LABS: DIFF IND NO
[2016-08-03 12:19] LABS: INR 1.1; PARTIAL THROMBOPLASTIN TIME 23.8 SECONDS (23.5-31.3); PROTHROMBIN TIME (PATIENT) 11.4 SECONDS (9.6-11.5)
[2016-08-03 12:33] LABS: ALBUMIN SERUM 3.3 g/dL (3.5-5.0); BILIRUBIN, DIRECT 0.1 mg/dL (0.0-0.2); BILIRUBIN,INDIRECT 0.6 mg/dL (0.0-0.9); BILIRUBIN,TOTAL 0.7 mg/dL (0.2-2.0); BUN/CREATININE RATIO 17.5; CALCIUM SERUM 8.5 mg/dL (8.4-10.2); CREATININE SERUM 0.8 mg/dL (0.6-1.4); POTASSIUM 3.4 mmol/L (3.5-5.1); PROTEIN TOTAL SERUM 6.6 g/dL (6.0-8.3)
[2016-08-03 13:10] LABS: POC - CKMB <1.0 ng/mL (0.0-7.9); POC - TROPONIN <0.05 ng/mL (<=0.05)
[2016-08-03 18:08] LABS: URINE SOURCE CLEAN CATCH
[2016-08-03 18:12] LABS: URINE APPEARANCE CLEAR; URINE BILIRUBIN NEG (NEG); URINE BLOOD NEG (NEG); URINE COLOR YELLOW; URINE GLUCOSE >1000 MG/DL (NEG); URINE KETONE TRACE (NEG); URINE LEUKOCYTE ESTERASE NEG (NEG); URINE NITRATE NEG (NEG); URINE PH 5.5 (5-8); URINE PROTEIN NEG (NEG); URINE SPECIFIC GRAVITY 1.033 (1.003-1.035); URINE UROBILINOGEN 0.2 MG/DL (NEG)
[2016-08-03 18:24] LABS: CULTURE INDICATED? NO
== END 2016-08-03 19:15 | disposition home or self-care (01) ==
LOC: CED 10:59
PROVIDERS: Emergency Medicine
DX: J44.1 Chronic obstructive pulmonary disease with (acute) exacerbation (principal); E11.9 Type 2 diabetes mellitus without complications; I10 Essential (primary) hypertension; Z87.891 Personal history of nicotine dependence
CPT/HCPCS: 36415; 71010; 74176; 80048; 80076; 81003; 82553; 83880; 84484; 85025; 85379; 85610; 85730; 93005; 94640; 96374; 96375; 99284; J2405; J2930